=== PATIENT | male | born 2000 | race Two or more races ===

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

== ENCOUNTER 2018-11-21 08:22 | Emergency (ER) | payer BC ==
[~2018-11-21] VITALS: Ht 177.8 cm; Wt 79.4 kg
[~2018-11-21 08:22] MED LIST: ACET-818 PO; ACET500C5 PO; ALBU8.5H8 INH; AMOX1TAB10 PO; AZIT250T PO; CEPH-443 PO; D-ME118S6 PO; DOXY100T20 PO; GUAI120S25 PO; IBUP-1542 PO; LOPE2CAP PO; MOME17SP14 NASAL; PRED20TA PO; ZOF8 PO
[2018-11-21 08:23] VITALS: BP 132/78; PULSE 109; RESP 18; Ht 177.8 cm; Wt 79.4 kg
== END 2018-11-21 09:10 | disposition home or self-care (01) ==
LOC: FTE 08:22
DX: J00 Acute nasopharyngitis [common cold] (principal); H66.002 Acute suppurative otitis media without spontaneous rupture of ear drum, left ear
CPT/HCPCS: 99283